=== PATIENT | male | born 1950 | race Caucasian/White ===

== ENCOUNTER → 2016-11-28 | Outpatient (CLI) | payer MEDICARE ==
--- NOTE | 2016-11-28 16:06 | US ---
EXAMINATION TYPE: Previous study dated 11/17/2014. DATE OF EXAM: 11/28/2016 COMPARISON: MRI and US 2014 CLINICAL HISTORY: ABNORMAL LIVER FUNCTION TEST R94.5. History of bladder CA and is taking medications now for treatment. EXAM MEASUREMENTS: Liver Length: 18.0 cm Gallbladder Wall: 0.2 cm CBD: 0.5 cm Right Kidney: 11.0 x 5.9 x 5.3 cm Pancreas: hyperechoic and tail is obscured by overlying bowel gas Liver: fatty and size suggests enlarged liver; upper liver cyst near dome = 1.1 x 1.1 x 0.9cm. Gallbladder: wnl Evidence for sonographic Anderson's sign: No CBD: wnl Right Kidney: wnl The pancreas is poorly visualized. The liver is prominent measuring 18 cm. It is attenuating and may be fatty infiltrated. There is a si mple appearing 1.1 cm cyst near the dome of the right lobe of the liver. The gallbladder is normal without cholelithiasis. The gallbladder wall measures 1.8 mm. The distal co mmon hepatic duct measures 5 mm. The right kidney is normal. IMPRESSION: SIMPLE APPEARING RIGHT HEPATIC CYST.
== END | disposition home or self-care (01) ==
LOC: RADUSWWP 15:25
PROVIDERS: ATTEND Internal Medicine
DX: K76.89 Other specified diseases of liver (principal)
CPT/HCPCS: 76705

== ENCOUNTER → 2018-12-25 | Outpatient (CLI) | payer MEDICARE ==
[2018-12-25 08:32] LABS: ALT 133 U/L (21-72); AST 103 U/L (17-59); African American GFR (CKD) >90 (>60 ml/min/1.73 sqM); Albumin 3.9 g/dL (3.5-5.0); Alkaline Phosphatase 314 U/L (38-126); Anion Gap 7 mmol/L; Blood Urea Nitrogen 19 mg/dL (9-20); Calcium 9.4 mg/dL (8.4-10.2); Carbon Dioxide 28 mmol/L (22-30); Chloride 104 mmol/L (98-107); Cholesterol 170 mg/dL (<200); Glucose 129 mg/dL (74-99); HDL Cholesterol 45 mg/dL (40-60); LDL Cholesterol,Calculated 88 mg/dL (0-99); Sodium 139 mmol/L (137-145); Total Bilirubin 0.5 mg/dL (0.2-1.3); Total Protein 7.8 g/dL (6.3-8.2); Triglycerides 184 mg/dL (<150)
[2018-12-25 09:46] LABS: T4, Free (Free Thyroxine) 1.23 ng/dL (0.78-2.19)
--- NOTE | 2018-12-25 11:21 | CT ---
EXAMINATION TYPE: CT urogram wo/w con DATE OF EXAM: 12/25/2018 COMPARISON: 12/14/2013 HISTORY: CA insitu of Bladder CT DLP: 2508 mGycm, Automated Exposure Control for Dose Reduction was Utilized. CONTRAST: CT scan of the abdomen and pelvis is performed with oral and without and with IV Contrast, patient in jected with 100 mL of Isovue 300. FINDINGS: LUNG BASES: No significant abnormality is appreciated. LIVER/GB: Gallbladder appears normal. No intrahepatic or extrahepatic biliary dilatation. Redemonst ration of small cysts in the right hepatic lobe measuring up to 1.1 cm. Hepatic steatosis and early c irrhotic features of the liver. No additional liver lesions identified. PANCREAS: No significant abnormality is seen. SPLEEN: No significant abnormality is seen. ADRENALS: Redemonstration of mild thickening of the left adrenal gland. KIDNEYS: There is development of mild haziness surrounding the right kidney. There is a right midpole cortical protrusion indenting on the renal pelvis which appears larger when compared to prior exam. On the 4 minute delayed imaging, there is an area of hypoattenuation measuring 3.7 x 3.8 cm on axial image 31 in that similar area previously described. There is symmetric excretion into the bilateral u reters without evidence of hydronephrosis. Interval resection of the urinary bladder with neobladder seen in the anterior abdomen. Contrast is seen entering the right ileostomy. BOWEL: No significant abnormality is seen. LYMPH NODES: No greater than 1cm abdominal or pelvic lymph nodes are appreciated. OSSEOUS STRUCTURES: No significant abnormality is seen. OTHER: No significant additional abnormality is seen. IMPRESSION: Interval right midpole enlargement with rapid washout. Given the history of bladder cancer, metastasi s or renal cancer should be considered. Infectious process such as polynephritis is also within the d ifferential. Further evaluation with MRI renal protocol is recommended. Hepatic steatosis and early cirrhotic features of the liver.
== END ==
LOC: RADCTMAIN 06:57
PROVIDERS: ATTEND Family Medicine
DX: D09.0 Carcinoma in situ of bladder (principal); K76.0 Fatty (change of) liver, not elsewhere classified
CPT/HCPCS: 84439; 84153; 80061; 80053; 84443; 74178; 36415; 74400; Q9967

== ENCOUNTER → 2019-02-17 | Outpatient (CLI) | payer MEDICARE ==
[2019-02-17 17:52] LABS: Albumin 3.9 g/dL (3.80-4.90); Albumin/Globulin Ratio 1.34 (1.60-3.17); Bilirubin, Conjugated 0.3 mg/dL (0.20-0.40); Bilirubin,Unconjugated 0.4 mg/dL; Globulin 2.9 g/dL (1.6-3.3); Total Bilirubin 0.7 mg/dL (0.2-1.2); Total Protein 6.8 g/dL (6.2-8.2)
== END | disposition home or self-care (01) ==
LOC: LABWHC1 09:21
PROVIDERS: ATTEND Family Medicine
DX: R74.8 Abnormal levels of other serum enzymes (principal)
CPT/HCPCS: 36415; 80076

== ENCOUNTER → 2019-11-28 | Outpatient (CLI) | payer MEDICARE ==
--- NOTE | 2019-11-30 06:16 | PE ---
EXAMINATION TYPE: PET CT fusion skull to thigh DATE OF EXAM: 11/28/2019 COMPARISON: CT urogram December 25, 2018. HISTORY: Prostate cancer progress study. Initially diagnosed and treated 2001 with surgery including cystectomy and radiation treatment ending 2002. New abnormal CT. Left lung nodule. TECHNIQUE: Following the intravenous administration of 12.93 mCi of F-18 FDG, whole body images are performed from the skull base to the midthigh. Images are reviewed on the computer in the coronal, a xial, and sagittal planes. Reconstructed rotating images are created on independent workstation and reviewed. An attenuation correction correction CT is performed in conjunction with the PET scan. SCAN: Subsequent Scan FINDINGS: SKULL BASE AND NECK: No new areas of suspicious hypermetabolic uptake. CHEST, MEDIASTINUM, AND HILAR REGION: Respiratory motion artifact degradation. There is 12 x 9 mm sanjay tabolic right upper lobe nodule or nodular consolidation axial image 80. Mild to moderate linear scar ring and/or atelectasis in both lower lungs. Additional 1.6 x 1.2 cm ametabolic nodule or nodular con solidation left lower lobe axial image 112. There are prominent but subcentimeter ametabolic thoracic lymph nodes, for reference there is 1.7 x 1.4 cm paratracheal lymph node axial image 78 noted. ABDOMEN AND PELVIS: Patient has history of bladder resection with right lower quadrant ileal conduit and ostomy. Normal excretion is present. Some increased bowel uptake particularly in sigmoid colon on axial image 227 noted. Max SUV is 4.36. Correlate with colonoscopy if it has not been performed in l ast 3 years. No additional areas of suspicious hypermetabolic uptake. OSSEOUS STRUCTURES: No areas of suspicious hypermetabolic uptake. OTHER CT: There is moderate three-vessel coronary artery calcification which is noted marker for unde rlying coronary artery disease. There is metallic internal biliary stent. Surgical sutures from prior bowel surgery right upper pelvi s axial image 205 anteriorly are noted. Prostate is surgically absent with clips in the pelvis. Metal lic artifact from right hip arthroplasty causes streak artifact limiting evaluation of pelvic structu res. Moderate atherosclerotic change of aorta extending into branch vessels. Multilevel spurring in the sp ine. Facet arthropathy lower lumbar levels. IMPRESSION: No suspicious hypermetabolic uptake in the lungs to suggest new metastatic malignancy.
== END | disposition home or self-care (01) ==
LOC: RADPETMAIN 11:01
PROVIDERS: ATTEND Internal Medicine
DX: C61 Malignant neoplasm of prostate (principal); C67.9 Malignant neoplasm of bladder, unspecified; D64.9 Anemia, unspecified; R94.8 Abnormal results of function studies of other organs and systems
CPT/HCPCS: 78815; A9552

== ENCOUNTER → 2020-01-27 | Outpatient (CLI) | payer MEDICARE | END | disposition home or self-care (01) | LOC: LABWHC1 11:38 | PROVIDERS: ATTEND Urology | DX: C61 Malignant neoplasm of prostate (principal); Z90.79 Acquired absence of other genital organ(s) | CPT/HCPCS: 36415; 84153 ==